=== PATIENT | male | born 1970 | race Caucasian/White ===

== ENCOUNTER 2018-05-18 08:38 | Emergency (ER) | payer OTHER ==
[2018-05-18 08:46] VITALS: BP 139/92; PULSE 90; TEMP 98.5; BMI 25.1
[2018-05-18] MEDS ORDERED: IBUPROFEN 400 MG TABLET (FP) PO ONE ×2 (09:11→09:13)
--- NOTE | 2018-05-18 09:11 | PDOC ---
History of Present Illness - General Chief Complaint: Ear Problem Stated Complaint: SEVERE EAR PAIN Time Seen by Provider: 05/18/18 09:03 History Source: Patient Exam Limitations: No Limitations - History of Present Illness Initial Comments: CHIEF COMPLAINT: 47 y/o afebrile male with no significant pMH c/o right ear pain since 4am. 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 He does state he uses ear plugs. He states the pain travels down the right side of his face to his mouth. He denies fever, cough, runny nose, otorrhea, sore throat, n/v/d, CP, SOB, NICHOLS and all other symptoms. Vital signs on arrival are within normal limits. REVIEW OF SYSTEMS: GENERAL/CONSTITUTIONAL: No fever/chills. No weakness. No weight change. HEAD, EYES, EARS, NOSE AND THROAT: No change in vision. +right ear pain radiating to right mouth. No sore throat. SKIN: No rash or easy bruising. NEUROLOGIC: No headache, vertigo, loss of consciousness, or loss of sensation. PHYSICAL EXAM: GENERAL: The patient is awake, alert, and fully oriented, in no acute distress. He is holding the right side of his face. HEAD: Normal with no signs of trauma. No hematomas. NECK: No midline lumbar spine TTP or step offs. Full ROM of cervical spine. ENT: Pupils equal, round and reactive to light, extraocular movements intact, sclera anicteric, conjunctiva clear. Right ear canal mildly inflamed without erythema. TMs normal b/l. No mastoid TTP b/l. No TTP with palpation of tragus b/l. No pre or post auricular lymph nodes. No tonsilar erythema or edema. No obvious dental caries. No trismus. No warmth, erythema or TTP to face. EXTREMITIES: Normal range of motion, no edema. NEUROLOGICAL: Normal speech, normal gait. CN II-XII grossly intact. SKIN: Warm, dry, normal turgor, no rashes or lesions noted. Past History - Past Medical History Allergies/Adverse Reactions: Allergies Allergy/AdvReac Type Severity Reaction Status Date / Time No Known Allergies Allergy Verified 05/18/18 08:47 Home Medications: Ambulatory Orders Ciprofloxacin HCl/Dexameth [Ciprodex Otic Suspension] 4 drop AD BID #1 bottle COPD: No - Suicide/Smoking/Psychosocial Hx Smoking History: Current every day smoker Number of Cigarettes Smoked Daily: 8 Information on smoking cessation initiated: Yes 'Breaking Loose' booklet given: 05/18/18 *Physical Exam - Vital Signs Last Vital Signs Temp Pulse Resp BP Pulse Ox 98.5 F 90 16 139/92 98 05/18/18 08:43 05/18/18 08:43 05/18/18 08:43 05/18/18 08:43 05/18/18 08:43 Medical Decision Making - Medical Decision Making A/P: 47 y/o male with acute right ear pain. Will treat for otitis externa. Suggested he f/u with ENT and dentist, take motrin for pain every 6 hours and return to the ER with any worsening or concerning symptoms. The patient verbalizes understanding of all instructions, has no further questions and is awaiting discharge. *DC/Admit/Observation/Transfer Diagnosis at time of Disposition: Otitis externa Qualifiers: Otitis externa type: unspecified type Chronicity: acute Laterality: right Qualified Code(s): H60.501 - Unspecified acute noninfective otitis externa, right ear - Discharge Dispostion Disposition: HOME Condition at time of disposition: Good - Referrals Referrals: ON STAFF,NOT [Primary Care Provider] - Jefferson Read MD [Staff Physician] - (Call Sunday) - Patient Instructions Printed Discharge Instructions: DI for Otitis Externa Additional Instructions: Discharge Instructions: -A prescription for ear drops has been sent to your pharmacy -Take 600mg of Motrin every 6 hours with food for pain -Follow up with Dr. Read and your dentist on Sunday -Return to the ER with any worsening or concerning symptoms - Post Discharge Activity Forms/Work/School Notes: Back to Work
== END 2018-05-18 09:33 | disposition home or self-care (01) ==
LOC: JERFT 08:38 → JER 08:38 → JERFT 09:33
DX: H60.501 Unspecified acute noninfective otitis externa, right ear (principal)
CPT/HCPCS: 99281-25